=== PATIENT | female | born 1990 | race Caucasian/White ===

== ENCOUNTER 2019-05-05 06:02 | Day surgery (SDC) | payer BC ==
[2019-05-05] VITALS (11 sets, daily range): BP systolic 93–128; BP diastolic 56–79
[~2019-05-05] VITALS: Ht 167.6 cm; Wt 62.6 kg
[~2019-05-05 06:02] MED LIST: BUPR300T53 PO; BUSP5TAB3 PO; cefazolin/dext.iso 2gm/50ml 50 ML IV ONE; famotidine 20mg tablet PO ONE; ringers solution, lacted 1,000 ML IV SCH
[2019-05-05] MEDS ORDERED: LIDOcaine 1% (10mg/ml) 2ml vial ONE (06:40)
[2019-05-05 07:22] LABS: BASOPHILS # (AUTO) 0.1 X10'3 (0-0.2); BASOPHILS % (AUTO) 1.1 % (0-1); EOSINOPHILS # (AUTO) 0.4 X10'3 (0-0.9); EOSINOPHILS % (AUTO) 7.1 % (0-6); LYMPHOCYTES # (AUTO) 2.6 X10'3 (1.1-4.8); LYMPHOCYTES % (AUTO) 42.4 % (21-51); MEAN CORPUSCULAR HEMOGLOBIN 30.5 PG (27.0-31.0); MEAN CORPUSCULAR HGB CONC 34.3 g/dL (33.0-36.5); MEAN CORPUSCULAR VOLUME 88.9 FL (78-98); MEAN PLATELET VOLUME 8.6 FL (7.4-10.4); MONOCYTES # (AUTO) 0.5 X10'3 (0-0.9); MONOCYTES % (AUTO) 8.9 % (2-12); NEUTROPHILS # (AUTO) 2.4 X10'3 (1.8-7.7); NEUTROPHILS % (AUTO) 40.5 % (42-75); PRE OP HEMATOCRIT 38.6 % (35.0-45.0); PRE OP HEMOGLOBIN 13.2 g/dL (12.0-16.0); PRE OP PLATELET COUNT 232 X10'3 (140-440); RED BLOOD COUNT 4.34 X10'6 (4.20-5.60)
[2019-05-05 07:27] LABS: HCG SERUM QL NEGATIVE
[2019-05-05 07:30] LABS: ALBUMIN 3.9 G/DL (3.4-5.0); ALBUMIN/GLOBULIN RATIO 1.3 (1.1-1.5); ALKALINE PHOSPHATASE 53 IU/L (46-116); BLOOD UREA NITROGEN 17 MG/DL (7-18); BUN/CREATININE RATIO 20.5 (6.6-38.0); CALCIUM 8.8 MG/DL (8.5-10.1); CHLORIDE 108 MMOL/L (99-107); CREATININE 0.83 MG/DL (0.40-0.90); PRE OP ALT 22 U/L (30-65); PRE OP ANION GAP 8 (8-16); PRE OP AST 15 U/L (10-37); PRE OP BILIRUB, TOTAL 0.3 MG/DL (0.0-1.0); PRE OP GLUCOSE 86 MG/DL (70-104); PRE OP POTASSIUM 3.7 MMOL/L (3.4-5.1); PRE OP SODIUM 144 MMOL/L (135-145); TOTAL CARBON DIOXIDE 27.7 MMOL/L (24-32); eGFR 82 ML/MIN
[2019-05-05] MEDS ORDERED: BUPIVAcaine/PF 2.5 mg/ml (0.25%) 30ml vial ONE (07:54)
[2019-05-05] MEDS ORDERED: BUPIVACAINE liposomal/PF 13.3 MG/ML vial IM ONE (07:54)
[2019-05-05] MEDS ORDERED: sevoflurane 250ml liquid IH ONE (08:22)
[2019-05-05] MEDS ORDERED: midazolam 2 mg/2 ml injection ONE (08:40)
[2019-05-05] MEDS ORDERED: fentaNYL/PF 50MCG/1 ML 2ML syringe ONE (08:41)
[2019-05-05] MEDS ORDERED: dexamethasone sod phosphate 4mg/ml inj. ONE (09:00)
[2019-05-05] MEDS ORDERED: ondansetron/PF 4mg/2ml inj ONE (09:00)
[2019-05-05] MEDS ORDERED: LIDOcaine 2% (20mg/ml) 5ml vial ONE (09:00)
[2019-05-05] MEDS ORDERED: propofol inj 20 ML IV ONE (09:00)
[2019-05-05] MEDS ORDERED: ringers solution, lacted 1,000 ML IV SCH (09:04)
[2019-05-05] MEDS ORDERED: HYDROmorphone inj. 0.5 MG/0.5 ML DISP.SYRIN IV PRN ×2 (09:05)
[2019-05-05] MEDS ORDERED: ondansetron/PF 4mg/2ml inj IV PRN (09:05)
[2019-05-05] MEDS ORDERED: meperidine/PF 25mg/ml syringe IV PRN (09:05)
[2019-05-05] MEDS ORDERED: morphine 2 MG/ML inj. syringe IV PRN (09:05)
[2019-05-05] MEDS ORDERED: acetaminophen 1,000mg/100ml IV 100 ML IV PRN (09:05)
[2019-05-05] MEDS ORDERED: proCHLORperazine 10 MG/2 ml inj IV PRN (09:05)
--- NOTE | 2019-05-05 09:32 | NUR ---
Received from OR via ,BED accompanied by Anesthesiologist DR RUIZ and report given by Anesthesiologist. PT DROWSY, DENIES PAIN, FOAM TAPE COVERING RECTUM, CDI. Addendum: 05/05/19 at 0947 by Sarai Ly RN Amended: Links added.
[2019-05-05] MEDS: morphine 4 MG/ML inj SYRINge IV PRN ×2 (09:56→10:07)
--- NOTE | 2019-05-05 10:11 | NUR ---
ERROR IN MEDICATION ADMINISTRATION, I GAVE 2 MG OF MORPHINE FOR BOTH DOSES, SCANNED FOR 4 MG AND WAS UNABLE TO CHANGE IN MED ADMINISTRATION. Addendum: 05/05/19 at 1012 by Sarai Ly RN Amended: Links added.
[2019-05-05] MEDS ORDERED: ALPRAZolam 0.25mg tablet PO PRN (10:15)
[2019-05-05] MEDS ORDERED: HYDROcodone/acetaminophen 5mg/325mg tablet PO ONE (10:35)
[2019-05-05] MEDS ORDERED: ALPRAZolam 0.5mg tablet PO PRN (10:36)
--- NOTE | 2019-05-05 11:22 | NUR ---
D/C INSTRUCTIONS GIVEN AND GONE OVER W/PT WHO VERBALIZED UNDERSTANDING, PT D/CD TO HOME VIA W/C TO PRIVATE VEHICLE W/O INCIDENT, PAIN AND ANXIETY MUCH IMPROVED, PT STATED FEELS MUCH BETTER. Addendum: 05/05/19 at 1145 by Sarai Ly RN Amended: Links added.
== END 2019-05-05 11:22 | disposition home or self-care (01) ==
LOC: PAS 06:02
PROVIDERS: ATTEND Surgery
DX: K62.0 Anal polyp (principal); K60.2 Anal fissure, unspecified; K64.8 Other hemorrhoids
CPT/HCPCS: 36415; 46255; 46922; 80053; 84703; 85025; A6224; C9290; J0131; J1100; J2001; J2250; J2270; J2405; J2704; J3010; J3490; A4215; A4618; A6449; A7000; J7120

== ENCOUNTER 2020-07-18 13:41 | Outpatient (CLI) | payer BC ==
[~2020-07-18 13:41] MED LIST changes: -cefazolin/dext.iso 2gm/50ml 50 ML IV ONE; -famotidine 20mg tablet PO ONE; -ringers solution, lacted 1,000 ML IV SCH
== END 2020-07-18 23:59 | disposition home or self-care (01) ==
LOC: RAD 13:41
PROVIDERS: ATTEND Nurse Practitioner
DX: R10.9 Unspecified abdominal pain (principal); R10.2 Pelvic and perineal pain; R10.31 Right lower quadrant pain
CPT/HCPCS: 76700; 76856; 93976

== ENCOUNTER 2022-03-15 08:55 | Emergency (ER) | payer BC ==
[~2022-03-15] VITALS: Ht 167.6 cm; Wt 62.3 kg
[2022-03-15 10:13] LABS: CLARITY,URINE CLEAR (Clear); COLOR,URINE YELLOW (Yellow); GLUCOSE, URINE NEGATIVE (Neg); KETONES,URINE NEGATIVE (Neg); LEUKOCYTE ESTERASE ,URINE NEGATIVE (Neg); NITRITES, URINE NEGATIVE (Neg); OCCULT BLOOD,URINE NEGATIVE (Neg); PH,URINE 5.5 (4.8-8.0); PROTEIN,URINE NEGATIVE (Neg); URINE HCG NEGATIVE (NEG); UROBILINOGEN,URINE 0.2 E.U/dL (0.2-1.0)
[2022-03-15 10:14] LABS: UA COLLECTION TYPE CLN CATCH MIDSTREAM
[2022-03-15] MEDS ORDERED: CefTRIAXone 500MG IM Kit w/LIDOcaine IM ONE (12:55)
[2022-03-15] MEDS ORDERED: ondansetron 4mg rapidly disintigrating tab PO ONE (12:55)
[2022-03-15] MEDS ORDERED: azithromycin 250mg tablet PO ONE (12:55)
[2022-03-15] MEDS ORDERED: TRAM50TA2 PO (13:09)
[2022-03-15] MEDS ORDERED: AMIT25TA10 PO (13:09)
[2022-03-15 13:48] VITALS: BP 100/66
== END 2022-03-15 13:51 | disposition home or self-care (01) ==
LOC: ER 08:56
DX: R10.32 Left lower quadrant pain (principal)
CPT/HCPCS: 74176; 81003; 81025; 96372; 99284; J0696